=== PATIENT | male | born 1990 ===

== ENCOUNTER → 2021-08-20 | Outpatient (CLI) | payer SELFPAY | END | disposition home or self-care (01) | LOC: LAB SHORT 18:44 | DX: S61.401A Unspecified open wound of right hand, initial encounter (principal); S61.402A Unspecified open wound of left hand, initial encounter | CPT/HCPCS: 87070; 87075; 87077; 87147; 87186; 87205 ==

== ENCOUNTER 2025-01-28 13:56 | Observation (INO) | payer OTHER ==
[~2025-01-28] VITALS: Ht 172.7 cm; Wt 70.3 kg
[~2025-01-28 13:56] MED LIST: Lactated Ringer's 1,000 ML IV SCH
[2025-01-28 15:49] LABS: BASOPHILS ABSOLUTE AUTO 0.08 K/mm3 (0.00-0.23); BASOPHILS PERCENT AUTO 1 % (0-2); EOSINOPHILS ABSOLUTE AUTO 0.16 K/mm3 (0.00-0.68); EOSINOPHILS PERCENT AUTO 2 % (0-6); Hematocrit 45.1 % (37.0-53.0); Hemoglobin 15.4 g/dL (13.5-17.5); IMMATURE GRAN ABSOLUTE AUTO 0.02 K/mm3 (0.00-0.10); IMMATURE GRAN PERCENT AUTO 0 % (0-1); LYMPHOCYTES ABSOLUTE AUTO 1.93 K/mm3 (0.84-5.20); LYMPHOCYTES PERCENT AUTO 20 % (21-46); MONOCYTES ABSOLUTE AUTO 0.58 K/mm3 (0.16-1.47); MONOCYTES PERCENT AUTO 6 % (4-13); Mean Corpuscular HGB 32.2 pg (26.0-34.0); Mean Corpuscular HGB Conc 34.1 g/dL (31.5-36.5); Mean Corpuscular Volume 94 fL (80-100); Mean Platelet Volume 10.2 fL (9.1-12.4); NEUTROPHILS ABSOLUTE AUTO 6.85 K/mm3 (1.96-9.15); NEUTROPHILS PERCENT AUTO 71 % (41-73); Platelet Count 122 K/mm3 (150-400); RDW Coefficient Variation 14.1 % (11.7-14.2); RDW Standard Deviation 48.3 fL (35.1-46.3); Red Blood Cell Count 4.79 M/mm3 (4.30-5.90); White Blood Cell Count 9.62 K/mm3 (4.00-11.30)
[2025-01-28 16:12] LABS: Albumin/Globulin Ratio 1.1 (0.8-1.8); Bilirubin, Total 0.4 mg/dL (0.1-1.0); Bun/Creatinine Ratio 11.6 (12.0-20.0); Calcium, Blood 8.9 mg/dL (8.5-10.1); Creatinine, Blood 0.77 mg/dL (0.60-1.20); Globulin, Blood 3.7 g/dL (2.2-4.0); Potassium, Blood 4.6 mmol/L (3.5-5.5); Total Protein, Blood 7.7 g/dL (6.4-8.2)
[2025-01-28] MEDS ORDERED: Ampicillin Sod/Sulbactam Sod 3 GM in NS 100 ML IV ONE (18:45)
[2025-01-28] MEDS ORDERED: NS 1,000 ML IV SCH ×2 (18:45→21:35)
[2025-01-28] MEDS ORDERED: Ketorolac Tromethamine 15mg Vial IV ONE (19:45)
[2025-01-28] MEDS ORDERED: Ondansetron HCl 2 MG / ML 2ML Vial IV PRN (23:45)
[2025-01-28] MEDS ORDERED: Ondansetron 4 MG TAB PO PRN (23:45)
[2025-01-28] MEDS ORDERED: Acetaminophen 325 MG TABLET PO PRN (23:45)
[2025-01-28] MEDS ORDERED: FLU VACC TS2024-25(6MOS UP)/PF 45 MCG/0.5 ML SYRINGE IM ONE (23:45)
[2025-01-29 01:20] VITALS: BP 153/96
[2025-01-29] MEDS ORDERED: Ampicillin Sod/Sulbactam Sod 3 GM in NS 100 ML IV SCH (02:27)
[2025-01-29 05:49] LABS: BASOPHILS ABSOLUTE AUTO 0.06 K/mm3 (0.00-0.23); BASOPHILS PERCENT AUTO 1 % (0-2); EOSINOPHILS ABSOLUTE AUTO 0.26 K/mm3 (0.00-0.68); EOSINOPHILS PERCENT AUTO 4 % (0-6); Hematocrit 37.6 % (37.0-53.0); Hemoglobin 12.8 g/dL (13.5-17.5); IMMATURE GRAN ABSOLUTE AUTO 0.02 K/mm3 (0.00-0.10); IMMATURE GRAN PERCENT AUTO 0 % (0-1); LYMPHOCYTES ABSOLUTE AUTO 2.03 K/mm3 (0.84-5.20); LYMPHOCYTES PERCENT AUTO 33 % (21-46); MONOCYTES ABSOLUTE AUTO 0.62 K/mm3 (0.16-1.47); MONOCYTES PERCENT AUTO 10 % (4-13); Mean Corpuscular HGB 32.6 pg (26.0-34.0); Mean Corpuscular Volume 96 fL (80-100); Mean Platelet Volume 10.1 fL (9.1-12.4); NEUTROPHILS ABSOLUTE AUTO 3.23 K/mm3 (1.96-9.15); NEUTROPHILS PERCENT AUTO 52 % (41-73); Platelet Count 97 K/mm3 (150-400); RDW Coefficient Variation 14.1 % (11.7-14.2); RDW Standard Deviation 49.1 fL (35.1-46.3); Red Blood Cell Count 3.93 M/mm3 (4.30-5.90); White Blood Cell Count 6.22 K/mm3 (4.00-11.30)
[2025-01-29 06:23] LABS: Albumin, Blood 3.3 g/dL (3.4-5.0); Albumin/Globulin Ratio 1.1 (0.8-1.8); Bun/Creatinine Ratio 11.2 (12.0-20.0); Calcium, Blood 8.1 mg/dL (8.5-10.1); Creatinine, Blood 0.81 mg/dL (0.60-1.20); Globulin, Blood 2.9 g/dL (2.2-4.0); Magnesium, Blood 2.2 mg/dL (1.6-2.4); Potassium, Blood 4.2 mmol/L (3.5-5.5); Total Protein, Blood 6.2 g/dL (6.4-8.2)
[2025-01-29 07:28] VITALS: BP 138/75
[2025-01-29] MEDS ORDERED: Enoxaparin 40 MG/0.4 ML SYR SC SCH (09:00)
[2025-01-29 09:16] LABS: U Amphetamine Screen Not Detected; U Barbituate Screen Not Detected; U Benzodiazapine Screen Not Detected; U Buprenorphine Screen Not Detected; U Cannabinoids Screen DETECTED; U Cocaine Screen Not Detected; U Methadone Screen Not Detected; U Methamphetamine Screen Not Detected; U Opiates Screen Not Detected; U Oxycodone Screen Not Detected; U Phencyclidine Screen Not Detected
[2025-01-29 11:58] VITALS: BP 149/79
[2025-01-29] MEDS ORDERED: NS 1,000 ML IV SCH (12:40)
[2025-01-29 16:16] VITALS: BP 131/94
--- NOTE | 2025-01-29 19:37 | NUR ---
SHIFT SUMMARY PT IS A/OX4, INDEPENDENT IN THE ROOM. PT REPORTS MINOR DIZZINESS THIS MORNING. CONTINUOUS NS RUNNING @ 100 ML/HR. THIS EVENING PT REPORT DIZZINESS HAS SUBSIDED. ON TELE RUNNING NORMAL SINUS RYTHYM. RECIEVING IV ANTIBIOTICS FOR TOOTH INFECTION. VISITED BY DENTAL HYGENIST THIS AFTERNOON. PT CALLS APPROPRIATELY USING THE CALL LIGHT.
[2025-01-29 19:45] VITALS: BP 131/89
[2025-01-30 00:30] VITALS: BP 144/92
[2025-01-30 03:52] VITALS: BP 151/95
--- NOTE | 2025-01-30 04:14 | NUR ---
PT A&O X4, VS WNL. DIET CHANGED TO SOFT D/T DENTAL INFECTION. TELE IS ST WITH INCREASE WITH ACTIVITY. REMAINS DIZZY AT TIMES. UP INDEPENDENTLY. PO INTAKE WNL, AND VOIDING WITHOUT ISSUE. PLAN TO D/C TO HOME TODAY.
[2025-01-30 06:17] LABS: BASOPHILS ABSOLUTE AUTO 0.05 K/mm3 (0.00-0.23); BASOPHILS PERCENT AUTO 1 % (0-2); EOSINOPHILS PERCENT AUTO 6 % (0-6); Hematocrit 37.9 % (37.0-53.0); Hemoglobin 12.9 g/dL (13.5-17.5); IMMATURE GRAN ABSOLUTE AUTO 0.01 K/mm3 (0.00-0.10); IMMATURE GRAN PERCENT AUTO 0 % (0-1); LYMPHOCYTES ABSOLUTE AUTO 1.75 K/mm3 (0.84-5.20); LYMPHOCYTES PERCENT AUTO 36 % (21-46); MONOCYTES PERCENT AUTO 10 % (4-13); Mean Corpuscular HGB 32.5 pg (26.0-34.0); Mean Corpuscular Volume 96 fL (80-100); Mean Platelet Volume 10.7 fL (9.1-12.4); NEUTROPHILS ABSOLUTE AUTO 2.28 K/mm3 (1.96-9.15); NEUTROPHILS PERCENT AUTO 47 % (41-73); Platelet Count 92 K/mm3 (150-400); RDW Coefficient Variation 13.8 % (11.7-14.2); RDW Standard Deviation 48.2 fL (35.1-46.3); Red Blood Cell Count 3.97 M/mm3 (4.30-5.90); White Blood Cell Count 4.89 K/mm3 (4.00-11.30)
[2025-01-30 06:32] LABS: Albumin, Blood 3.2 g/dL (3.4-5.0); Albumin/Globulin Ratio 1.1 (0.8-1.8); Bilirubin, Total 0.7 mg/dL (0.1-1.0); Bun/Creatinine Ratio 7.6 (12.0-20.0); Calcium, Blood 8.2 mg/dL (8.5-10.1); Creatinine, Blood 0.79 mg/dL (0.60-1.20); Globulin, Blood 2.9 g/dL (2.2-4.0); Magnesium, Blood 1.9 mg/dL (1.6-2.4); Phosphorus, Blood 3.7 mg/dL (2.5-4.9); Potassium, Blood 3.8 mmol/L (3.5-5.5); Total Protein, Blood 6.1 g/dL (6.4-8.2)
[2025-01-30 07:13] VITALS: BP 138/93
[2025-01-30] MEDS ORDERED: AMOCLA875 PO (12:17)
[2025-01-30] MEDS ORDERED: Acetaminophen325 M1 PO (12:17)
--- NOTE | 2025-01-30 13:42 | NUR ---
DISCHARGE NOTE PT A&OX4. PT ADMITTED DUE TO SYNCOPE EPISODE. PT REPORTS NO PAIN, NO DIZZINESS OR SIGN OF SYNCOPE. PT REPORTS "IMPROVEMENT SINCE ADMISSION. PT INDEPENDENT IN ROOM. CAME TO ROUND ON PT AND PUT IN DISCHARGE ORDERS AND WILL ORDER PT ANTIBIOTIC. PT HAD NOON DOSE OF IV ANTIBIOTIC. MEDS FAXED TO PHARMACY. PT INSTRUCTED ABOUT DISCHARGE INSTRUCTIONS AND MEDS. PT ESCORTED OUT BY THIS RN. TELE D/C. IV D/C.
== END 2025-01-30 13:28 | disposition home or self-care (01) ==
LOC: ER 13:56 → ERHOLD 13:57 → MEDS 13:57
PROVIDERS: Hospitalist; Student in an Organized Health Care Education/Training Program; ADMIT Student in an Organized Health Care Education/Training Program
DX: R55 Syncope and collapse (principal); K04.7 Periapical abscess without sinus; E87.20 Acidosis, unspecified; F12.90 Cannabis use, unspecified, uncomplicated; F17.210 Nicotine dependence, cigarettes, uncomplicated
CPT/HCPCS: 36415; 70491; 71260; 80053; 83605; 83735; 84100; 84484; 85025; 85379; 87040; 87077; 87186; 87205; 93005; 93010; 93306; 96361; 96365-59; 96366; 96372; 96375-59; 96376; 99285-25; A9270; G0378; J0295; J1650; J1885; J7030; Q9967